=== PATIENT | female | born 1960 | race Caucasian/White ===

== ENCOUNTER 2021-11-04 16:28 | Emergency (ER) | payer OTHER ==
[~2021-11-04] VITALS: Ht 154.9 cm; Wt 74.4 kg
[2021-11-04] MEDS ORDERED: LOSARTAN-HCTZ1 EACH (17:01)
[2021-11-04] MEDS ORDERED: DICLOFENAC SODI75 MG PO (19:15)
== END 2021-11-04 19:16 | disposition home or self-care (01) ==
LOC: ER 16:28
DX: S02.2XXA Fracture of nasal bones, initial encounter for closed fracture (principal); V89.2XXA Person injured in unspecified motor-vehicle accident, traffic, initial encounter; Y93.89 Activity, other specified; Y92.89 Other specified places as the place of occurrence of the external cause; Y99.8 Other external cause status